=== PATIENT | male | born 1965 | race Caucasian/White ===

== ENCOUNTER 2023-06-22 07:44 | Inpatient (IN) | payer OTHER, MEDICAID ==
[~2023-06-22] VITALS: Ht 180.3 cm; Wt 111.1 kg
[2023-06-22] MEDS ORDERED: ACETAMINOPHEN 500 MG TABLET PO ONE (08:00)
[2023-06-22] MEDS ORDERED: GABAPENTIN 300 MG CAPSULE PO ONE (08:00)
[2023-06-22] MEDS ORDERED: CELECOXIB 100 MG CAPSULE PO ONE (08:00)
[2023-06-22] MEDS ORDERED: oxyCODONE HCL 10 MG TAB.ER.12H PO ONE ×2 (08:00→08:04)
[2023-06-22] MEDS ORDERED: SCOPOLAMINE HYDROBROMIDE 1 MG PATCH .72 H (TRANSDERM-SCOP) TD ONE ×2 (08:00→08:03)
[2023-06-22] MEDS ORDERED: CELECOXIB 100 MG CAPSULE ONE (08:03)
[2023-06-22] MEDS ORDERED: ACETAMINOPHEN 500 MG TABLET ONE (08:03)
[2023-06-22] MEDS ORDERED: GABAPENTIN 300 MG CAPSULE ONE (08:04)
[2023-06-22] MEDS ORDERED: CEFAZOLIN SOD 2 GM in D5W 50 ML IV ONE (08:15)
[2023-06-22] MEDS ORDERED: METOCLOPRAMIDE HCL 10 MG/2 ML VIAL IVP PRN ×2 (10:45→11:45)
[2023-06-22] MEDS ORDERED: BISACODYL 10 MG/SUPPOSITORY RC PRN (10:45)
[2023-06-22] MEDS ORDERED: NALOXONE HCL 0.4 MG/ML AMP (NARCAN) IVP PRN ×4 (10:45→11:45)
[2023-06-22] MEDS ORDERED: DIPHENHYDRAMINE HCL 25 MG CAPSULE PO PRN (10:45)
[2023-06-22] MEDS ORDERED: GLUCOSE (DEXTROSE) ORAL GEL -Adults PO PRN (10:45)
[2023-06-22] MEDS ORDERED: DEXTROSE 50% JECT 50 ML DISP.SYRIN IVP PRN (10:45)
[2023-06-22] MEDS ORDERED: D5W 1,000 ML IV PRN (10:45)
[2023-06-22] MEDS ORDERED: LACTULOSE 20 GM/30 ML UDC PO PRN (10:45)
[2023-06-22] MEDS ORDERED: oxyCODONE HCL 5 MG TABLET PO PRN (11:00)
[2023-06-22] MEDS ORDERED: HYDROmorphone 1 MG/ML INJ. CARTRIDGE IVP PRN ×5 (11:00→11:45)
[2023-06-22] MEDS ORDERED: traMADol HCL HCL 50 MG TABLET (ULTRAM) PO PRN (11:00)
[2023-06-22] MEDS ORDERED: LORATADINE 10 MG TABLET PO PRN (11:00)
[2023-06-22] MEDS ORDERED: LISI40TA13 PO (11:38)
[2023-06-22] MEDS ORDERED: PRO20 PO (11:38)
[2023-06-22] MEDS ORDERED: LURA80TA2 PO (11:38)
[2023-06-22] MEDS ORDERED: PROP10TA10 PO (11:38)
[2023-06-22] MEDS ORDERED: SIMV-345 PO (11:38)
[2023-06-22] MEDS ORDERED: METF-379 PO (11:38)
[2023-06-22] MEDS ORDERED: BENZ1TAB82 PO (11:38)
[2023-06-22] MEDS ORDERED: DIVA250T PO (11:38)
[2023-06-22] MEDS ORDERED: OMEP40CA20 PO (11:38)
[2023-06-22] MEDS ORDERED: MEPERIDINE HCL/PF 25 MG/ML DISP.SYRIN IVP PRN (11:45)
[2023-06-22] MEDS ORDERED: LABETALOL 100 MG/ 20ML VIAL IVP PRN (11:45)
[2023-06-22] MEDS ORDERED: DIPHENHYDRAMINE INJ 50 MG/ML VIAL IVP PRN (11:45)
[2023-06-22] MEDS ORDERED: ONDANSETRON HCL 4 MG/2 ML VIAL IVP PRN ×2 (11:45)
[2023-06-22] MEDS ORDERED: hydrALAZINE HCL 20 MG/ML VIAL IVP PRN (11:45)
[2023-06-22] MEDS: LR 1,000 ML IV SCH ×2 (11:45→21:32)
[2023-06-22 13:01] VITALS: PULSE 62; O2SAT 96
[2023-06-22] MEDS: KETOROLAC TROMETHAMINE 10 MG TABLET (TORADOL) PO SCH ×2 (14:00→21:17)
[2023-06-22] MEDS: ACETAMINOPHEN 500 MG TABLET PO SCH ×2 (14:00→21:16)
[2023-06-22] MEDS: ceFAZolin SODIUM 2 GM in D5W 50 ML IV SCH ×2 (14:00→21:17)
[2023-06-22 15:50] VITALS: BP_SYST 105; PULSE 85; RESP 18; TEMP 98; O2SAT 99
[2023-06-22 20:05] VITALS: BP_SYST 124; PULSE 73; RESP 16; TEMP 97.4; O2SAT 94
[2023-06-22] MEDS: SENNOSIDES/DOCUSATE SODIUM 1 TAB TABLET(SENOKOT-S) PO SCH (20:44)
[2023-06-22] MEDS: BENZTROPINE MESYLATE 1 MG TABLET PO SCH (20:44)
[2023-06-22] MEDS: PROPRANOLOL HCL 10 MG TABLET (INDERAL) PO SCH (20:45)
[2023-06-22] MEDS: FLUoxetine HCL 20 MG CAPSULE (PROzac) PO SCH (20:45)
[2023-06-22] MEDS: DIVALPROEX SODIUM 250 MG TAB.SR.24H (DEPAKOTE ER) PO SCH ×2 (20:46→21:16)
[2023-06-22] MEDS: INSULIN REGULAR, HUMAN 100 UNITS/ML, 3 ML VIAL (humuLIN R) SUBCUT PRN (21:20)
[2023-06-23 00:25] VITALS: BP_SYST 113; PULSE 72; RESP 15; TEMP 97; O2SAT 95
[2023-06-23 05:17] LABS: BASOPHILS # (AUTO) 0.2 K/uL (0.0-0.2); HEMATOCRIT 38.4 % (36-54); LYMPHOCYTES # (AUTO) 0.5 K/uL (1.0-5.5); LYMPHOCYTES % (AUTO) 3.3 % (20.5-51.5); MEAN CORPUSCULAR HEMOGLOBIN 31 pg (27-31); MEAN CORPUSCULAR HGB CONC 34 % (32-36); MEAN CORPUSCULAR VOLUME 90 fL (79.0-98.0); MONOCYTES # (AUTO) 0.7 K/uL (0.0-1.0); NEUTROPHILS # (AUTO) 13.1 K/uL (1.8-7.7); NEUTROPHILS % (AUTO) 90.7 % (40.0-70.0); PLATELET COUNT (AUTO) 200 K/uL (130-430); RED BLOOD CELL COUNT(AUTO) 4.27 MIL/uL (4.2-6.2); RED CELL DISTRIBUTION WIDTH 12.5 % (9.0-15.0); WHITE BLOOD COUNT (AUTO) 14.4 K/uL (4.8-10.8)
[2023-06-23] MEDS: KETOROLAC TROMETHAMINE 10 MG TABLET (TORADOL) PO SCH (05:23)
[2023-06-23] MEDS: ACETAMINOPHEN 500 MG TABLET PO SCH ×3 (05:23→21:18)
[2023-06-23] MEDS: ceFAZolin SODIUM 2 GM in D5W 50 ML IV SCH (05:23)
[2023-06-23 05:34] LABS: CALCIUM 8.2 mg/dL (8.4-11.0); CREATININE 1.13 mg/dL (0.55-1.30); POTASSIUM 4.5 mmol/L (3.5-5.1)
[2023-06-23] MEDS ORDERED: TAMSULOSIN HCL 0.4 MG CAP PO PRN (07:15)
[2023-06-23 08:00] VITALS: BP_SYST 152; PULSE 71; RESP 15; TEMP 97.8; O2SAT 98
[2023-06-23] MEDS ORDERED: OMEPRAZOLE Non-Formulary 20 MG CAPSULE.DR PO SCH (09:00)
[2023-06-23] MEDS: PANTOPRAZOLE SODIUM 40 MG TAB PO SCH (10:20)
[2023-06-23] MEDS: ASPIRIN 81 MG TAB.CHEW PO SCH ×2 (10:20→21:10)
[2023-06-23] MEDS: DIVALPROEX SODIUM 250 MG TAB.SR.24H (DEPAKOTE ER) PO SCH ×3 (10:20→21:18)
[2023-06-23] MEDS: SENNOSIDES/DOCUSATE SODIUM 1 TAB TABLET(SENOKOT-S) PO SCH ×2 (10:21→21:12)
[2023-06-23] MEDS: BENZTROPINE MESYLATE 1 MG TABLET PO SCH ×3 (10:21→21:11)
[2023-06-23] MEDS: CELECOXIB 200 MG CAPSULE PO SCH ×2 (10:21→22:59)
[2023-06-23] MEDS: FLUoxetine HCL 20 MG CAPSULE (PROzac) PO SCH ×2 (10:21→21:11)
[2023-06-23] MEDS: lisinopriL 5 MG TABLET PO SCH (10:22)
[2023-06-23] MEDS: PROPRANOLOL HCL 10 MG TABLET (INDERAL) PO SCH ×2 (10:22→21:13)
[2023-06-23] MEDS: INSULIN REGULAR, HUMAN 100 UNITS/ML, 3 ML VIAL (humuLIN R) SUBCUT PRN (10:30)
[2023-06-23 10:59] VITALS: O2SAT 98
[2023-06-23 12:00] VITALS: BP_SYST 130; PULSE 78; RESP 18; TEMP 98.2; O2SAT 96
[2023-06-23 16:00] VITALS: BP_SYST 119; PULSE 70; RESP 20; TEMP 98; O2SAT 96
[2023-06-23 20:06] VITALS: BP_SYST 127; PULSE 72; RESP 18; TEMP 96.6; O2SAT 95
[2023-06-23] MEDS: SIMVASTATIN 40 MG TABLET PO SCH (21:12)
[2023-06-24] VITALS (7 sets, daily range): BP systolic 107–126; PULSE 61–85; RESP 16–20; TEMP 96.8–98.4; O2SAT 95–100
[2023-06-24] MEDS: oxyCODONE HCL 5 MG TABLET PO PRN (01:47)
[2023-06-24] MEDS: ACETAMINOPHEN 500 MG TABLET PO SCH ×3 (06:13→21:03)
[2023-06-24 07:56] LABS: CALCIUM 7.8 mg/dL (8.4-11.0); CREATININE 1.09 mg/dL (0.55-1.30); POTASSIUM 4.2 mmol/L (3.5-5.1)
[2023-06-24] MEDS: CELECOXIB 200 MG CAPSULE PO SCH (10:12)
[2023-06-24] MEDS: BENZTROPINE MESYLATE 1 MG TABLET PO SCH ×3 (10:12→20:37)
[2023-06-24] MEDS: PANTOPRAZOLE SODIUM 40 MG TAB PO SCH (10:12)
[2023-06-24] MEDS: FLUoxetine HCL 20 MG CAPSULE (PROzac) PO SCH ×2 (10:12→20:43)
[2023-06-24] MEDS: SENNOSIDES/DOCUSATE SODIUM 1 TAB TABLET(SENOKOT-S) PO SCH ×2 (10:13→20:36)
[2023-06-24] MEDS: ASPIRIN 81 MG TAB.CHEW PO SCH ×2 (10:13→20:36)
[2023-06-24] MEDS: PROPRANOLOL HCL 10 MG TABLET (INDERAL) PO SCH ×2 (10:14→20:38)
[2023-06-24] MEDS: lisinopriL 5 MG TABLET PO SCH (10:15)
[2023-06-24] MEDS: DIVALPROEX SODIUM 250 MG TAB.SR.24H (DEPAKOTE ER) PO SCH (10:23)
[2023-06-24] MEDS: INSULIN REGULAR, HUMAN 100 UNITS/ML, 3 ML VIAL (humuLIN R) SUBCUT PRN (10:24)
[2023-06-24] MEDS: SIMVASTATIN 40 MG TABLET PO SCH (20:36)
[2023-06-25] MEDS: CELECOXIB 200 MG CAPSULE PO SCH ×2 (00:40→12:37)
[2023-06-25 01:14] VITALS: BP_SYST 121; PULSE 71; RESP 19; TEMP 98.2; O2SAT 100
[2023-06-25] MEDS: oxyCODONE HCL 5 MG TABLET PO PRN (03:49)
[2023-06-25 04:34] VITALS: O2SAT 99
[2023-06-25 05:19] LABS: BASOPHILS % (AUTO) 0.3 % (0.0-2.0); EOSINOPHILS # (AUTO) 0.3 K/uL (0.0-0.4); EOSINOPHILS % (AUTO) 2.5 % (0.0-4.0); HEMATOCRIT 29.8 % (36-54); HEMOGLOBIN 10.4 g/dL (14.0-18.0); LYMPHOCYTES # (AUTO) 1.7 K/uL (1.0-5.5); LYMPHOCYTES % (AUTO) 15.8 % (20.5-51.5); MEAN CORPUSCULAR HEMOGLOBIN 31 pg (27-31); MEAN CORPUSCULAR HGB CONC 35 % (32-36); MEAN CORPUSCULAR VOLUME 89 fL (79.0-98.0); MONOCYTES # (AUTO) 0.9 K/uL (0.0-1.0); MONOCYTES % (AUTO) 8.9 % (1.7-9.3); NEUTROPHILS # (AUTO) 7.7 K/uL (1.8-7.7); NEUTROPHILS % (AUTO) 72.5 % (40.0-70.0); PLATELET COUNT (AUTO) 146 K/uL (130-430); RED BLOOD CELL COUNT(AUTO) 3.35 MIL/uL (4.2-6.2); RED CELL DISTRIBUTION WIDTH 12.8 % (9.0-15.0); WHITE BLOOD COUNT (AUTO) 10.6 K/uL (4.8-10.8)
[2023-06-25 05:27] LABS: CALCIUM 7.8 mg/dL (8.4-11.0); CREATININE 1.05 mg/dL (0.55-1.30); POTASSIUM 3.9 mmol/L (3.5-5.1)
[2023-06-25] MEDS: ACETAMINOPHEN 500 MG TABLET PO SCH ×2 (06:00→14:31)
[2023-06-25 07:30] VITALS: PULSE 70; O2SAT 100
[2023-06-25] MEDS ORDERED: OXYIR5 PO (07:46)
[2023-06-25] MEDS ORDERED: CEFA250S32 PO (07:47)
[2023-06-25 08:00] VITALS: BP_SYST 125; PULSE 73; RESP 18; TEMP 96.4; O2SAT 94
[2023-06-25] MEDS ORDERED: cephALEXin 500 MG CAPSULE PO ONE (08:15)
[2023-06-25] MEDS ORDERED: COMMUNICATION ORDER XX ONE (08:15)
[2023-06-25] MEDS: SENNOSIDES/DOCUSATE SODIUM 1 TAB TABLET(SENOKOT-S) PO SCH (09:16)
[2023-06-25] MEDS: lisinopriL 5 MG TABLET PO SCH (09:16)
[2023-06-25] MEDS: ASPIRIN 81 MG TAB.CHEW PO SCH (09:17)
[2023-06-25] MEDS: FLUoxetine HCL 20 MG CAPSULE (PROzac) PO SCH (09:17)
[2023-06-25] MEDS: PROPRANOLOL HCL 10 MG TABLET (INDERAL) PO SCH (09:17)
[2023-06-25] MEDS: PANTOPRAZOLE SODIUM 40 MG TAB PO SCH (09:18)
[2023-06-25] MEDS: BENZTROPINE MESYLATE 1 MG TABLET PO SCH ×2 (09:18→14:31)
[2023-06-25] MEDS: INSULIN REGULAR, HUMAN 100 UNITS/ML, 3 ML VIAL (humuLIN R) SUBCUT PRN (09:26)
[2023-06-25] MEDS ORDERED: SODIUM CHLORIDE 3% IV ONE (09:30)
[2023-06-25] MEDS ORDERED: [UNRECOGNIZED DRUG - OTHER] IV ONE (09:30)
[2023-06-25] MEDS ORDERED: cephALEXin 500 MG CAPSULE PO SCH (12:00)
[2023-06-25 13:40] VITALS: O2SAT 94
[2023-06-25 16:02] VITALS: BP_SYST 106; PULSE 74; RESP 17; TEMP 96.5
[2023-06-25 16:27] LABS: CALCIUM 8.5 mg/dL (8.4-11.0); CREATININE 1.18 mg/dL (0.55-1.30); POTASSIUM 4.6 mmol/L (3.5-5.1)
[2023-06-25] MEDS ORDERED: ASA81 PO (17:31)
== END 2023-06-25 17:50 | DRG 470 ==
LOC: SMU 07:44
PROVIDERS: ADMIT Student in an Organized Health Care Education/Training Program; ATTEND Student in an Organized Health Care Education/Training Program
PROC: 0SRB0JA Replacement of Left Hip Joint with Synthetic Substitute, Uncemented, Open Approach (ICD-10-PCS; principal; 2023-06-22 10:56)
DX: M16.12 Unilateral primary osteoarthritis, left hip (principal); E87.1 Hypo-osmolality and hyponatremia; G97.82 Other postprocedural complications and disorders of nervous system; E87.70 Fluid overload, unspecified; R63.1 Polydipsia; E78.5 Hyperlipidemia, unspecified; F32.A Depression, unspecified; I10 Essential (primary) hypertension; F39 Unspecified mood [affective] disorder; S74.10XA Injury of femoral nerve at hip and thigh level, unspecified leg, initial encounter
CPT/HCPCS: 36415; 72170-TC; 76001; 80048; 82948; 82962; 83037; 83735; 85025; 87081; 88304; 88311; 96379; 97110-GP; 97116-GP; 97163-GP; 97530-GP; A4649; C1713; C1769; C1776; J0690; J3490; J7060; J7120